=== PATIENT | male | born 1950 | race Caucasian/White ===

== ENCOUNTER 2020-11-30 20:37 | Inpatient (IN) | payer OTHER ==
--- OUTSIDE RECORDS SUMMARY | 2020-11-30 20:39 | XMS REPORT | Continuity of Care Document ---
:1950 Author Organization [facility] t Address [address] [place] [address] Care Team Providers Name Role Phone Noelle REYNA Primary Care Physician Noelle REYNA Attending Clinician Problems This patient has no known problems. Allergies, Adverse Reactions, Alerts This patient has no known allergies or adverse reactions. Social History Social Habit Start Date Stop Date Quantity Comments Source Sex Assigned At [birth year] [facility] 00:00:00 00:00:00 Smoking Status Start Date Stop Date Source Unknown if ever smoked [facility] Medications This patient has no known medications. Procedures Procedure Date / Time Performed Performing Clinician Sour e CT HEART SCAN PLUS W 2020-07-12 14:48:53 [facility] PHYSICIAN ORDER US VASCULAR SCREENING 2020-07-12 14:00:00 [facility] HEART SCAN PLUS Plan of Care Planned Activity Planned Date Details Comments Source Future Scheduled Test COVID-19 VACCINE (1) [facility] [code = COVID-19 VACCINE (1)] Future Scheduled Test Hepatitis C screening [facility] (procedure) [code = 961560766] Future Scheduled Test COLONOSCOPY SCREENING [facility] [code = COLONOSCOPY SCREENING] Future Scheduled Test SHINGLES VACCINES (#1) [facility] [code = SHINGLES VACCINES (#1)] Future Scheduled Test 65+ PNEUMOCOCCAL Me [facility] VACCINE (1 of 1 - PPSV23) [code = 65+ PNEUMOCOCCAL VACCINE (1 of 1 - PPSV23)] Future Scheduled Test INFLUENZA VACCINE [code [facility] = INFLUENZA VACCINE] Encounters Start End Encounter Admission Attending Care Care Encounter Source Date/Time Date/Time Type Type Clinicians Facility Department ID 2020-07-122020-07-12 [facility], 1.2.840.1 [id number] [facility] 08:00:14 23:59:00 Encounter [facility] [id number] 3.430.2.7 Hospit a .3.845284 l .8 2020-07-12 2020-07-12 Outpatient [facility] [id number] 00:00:00 00:00:[address] [facility] [address] 2020-07-12 2020-07-12 Outpatient [facility] [id number] 00:00:00 00:00:00 [facility] [address] 2020-07-12 2020-07-12 Travel 1.2.840.1 [id number] [facility] 00:00:00 00:00:[address] 3.430.2.7 0.2.7.3.698 Ho spita .3.691074 084.8 l .8 2020-06-08 2020-06-08 Travel 1.2.840.1 1.2.293.938 [id number] [facility] 00:00:00 00:00:[address] 3.430.2.7 0.2.7.3.698 Ho spita .3.099676 084.8 l .8 2020-03-01 2020-03-01 Transcribe [facility] 1.2.840.1 [id number] [facility] 00:00:00 00:00:00 Orders [facility] [address]82.1.[address] 3.430.2.7 Hospit a .3.171454 l .8 Results Test Description Test Time Test Comments Results Result [facility] e Comments Pv vascular 2020-06-24 Restorationist screening heart 0 Hospital scan plus (self 15:47:00 Vascular pay) Diagnostic Laboratory Screening Report [address] [address], [place] [address] Pat.Name: FÁTIMA HILLS Pat.ID: [id number] .Date: 07/12/2020 Refer.MD: GODWIN PADILLA MD Exam Time: 8:17:00 AM Study Type:Screening Age: 2 1950,70Y Sex: MALE Sonogrphr: JOLENE Sarabia Pat. Stat.:Outpatient Tape Vol: /SH, Echo Event ID:[id number] Order ID: [id number] Reason for Study:Vascular screeningProcedures: Ankle/brachial pressures, Colorflow, Grayscale/2D,Non-imagi ng continuous wave Doppler, Pulsed wave Doppler, SegmentalpressuresRace : SUMMARY: Vascular Screening ResultsScreening results are brief snapshots designed to detect functionalabnormal findings of carotid artery disease, abdominal aorticaneurysms (AAA), and peripheral arterial disease (PAD). Please Note: Screening results do not replace a complete vascularexamination.Ca rotid ArteryRight Internal Carotid Artery (X) Abnormal: Plaque present but no stenosis Left Internal Carotid Artery (X) Abnormal: Plaque present but no stenosis.Abdominal Aorta(X) Normal: No evidence of aneurysmal dilatation (less than 3cm).Ankle/Brachial Index(X) Abnormal: PAD present which falls into the mild category on theleft dorsalis pedis artery. Recommendations Your results are ABNORMAL. Please take these results to yourphysician and discuss them in further detail. If you do not have a physician you can call our [facility] to schedule an appointment at [phone].--------- -----FINDINGS:-------- ------Signed 07/12/2020 10:47 Truman Lazcano MD, RPVIInterce, Radiology Results In - 07/12/2020 10:48 AM CDT Vascular Diagnostic Laboratory Screening Report [address] [facility], [address] [address], [place] [address] Pat.Name: FÁTIMA HILLS.ID: [id number] .Date: 07/12/2020 Refer.MD: GODWIN PADILLA MD Exam Time: 8:17:00 AM Study Type:Screening Age: 2 1950,70Y Sex: MALE Sonogrphr: JOLENE Sarabia Pat. Stat.:Outpatient Tape Vol: VM/SH, Echo Event ID:[id number] Order ID: [id number] Reason for Study:Vascular screeningProcedures: Ankle/brachial pressures, Colorflow, Grayscale/2D,Non-imagi ng continuous wave Doppler, Pulsed wave Doppler, SegmentalpressuresRace : SUMMARY: Vascular Screening ResultsScreening results are brief snapshots designed to detect functionalabnormal findings of carotid artery disease, abdominal aorticaneurysms (AAA), and peripheral arterial disease (PAD). Please Note: Screening results do not replace a complete vascularexamination.Ca rotid ArteryRight Internal Carotid Artery (X) Abnormal: Plaque present but no stenosis Left Internal Carotid Artery (X) Abnormal: Plaque present but no stenosis.Abdominal Aorta(X) Normal: No evidence of aneurysmal dilatation (less than 3cm).Ankle/Brachial Index(X) Abnormal: PAD present which falls into the mild category on theleft dorsalis pedis artery. Recommendations Your results are ABNORMAL. Please take these results to yourphysician and discuss them in further detail. If you do not have a physician you can call our [facility] to schedule an appointment at [phone].--------- -----FINDINGS:-------- ------Signed 07/12/2020 10:47 Truman Lazcano MD, RPVI
--- NOTE | 2020-11-30 21:34 | RAD REPORT ---
EXAM DESCRIPTION: RAD - Chest Single View - 11/30/2020 9:09 pm CLINICAL HISTORY: DYSPNEA COMPARISON: CHEST PA AND LAT 2 VIEW dated 10/30/2007 FINDINGS: Lines: None. Lungs: Moderate patchy bilateral airspace disease. Pleural: No significant pleural effusions or pneumothorax. Cardiac: Cardiomegaly. Bones: No acute fractures. Other: IMPRESSION: Moderate bilateral airspace disease concerning for multifocal pneumonia, particularly Co vid-19.
[2020-11-30 22:27] LABS: Absolute Lymphocytes (CBC) 0.8 K/uL (0.7-4.9); Basophils % 0.1 % (0-1.3); Hematocrit 36.1 % (39.6-49.0); Lymphocytes % 6.3 % (15.3-44.8); MPV 7.6 fL (7.6-11.3); RBC Red Blood Cell Count 4.03 M/uL (4.33-5.43)
[2020-11-30] MEDS ORDERED: METHYLPREDNISOLONE 125 MG INJ ONE (22:49)
[2020-11-30] MEDS ORDERED: NA CHLORIDE 0.9% 1,000 ML ONE (22:49)
[2020-11-30 23:08] LABS: Albumin 2.3 g/dL (3.4-5.0); Bilirubin Direct 0.4 mg/dL (0-0.2); Bilirubin Total 0.7 mg/dL (0.2-1.0); Ferritin 573.3 ng/mL (26-388); Potassium 4.7 mmol/L (3.5-5.1); Protein, Total 6.3 g/dL (6.4-8.2); Troponin (Emerg Dept Use Only) 0.02 ng/mL (0.0-0.045)
[2020-11-30 23:30] LABS: Protime INR 1.22
[2020-12-01 00:05] LABS: Blood Morphology Comment NOT SEEN (NOT SEEN); Platelet Estimate ADEQ
--- NOTE | 2020-12-01 00:14 | EDPHYS ---
Physician Documentation [facility] Name: Demetris Salvador Age: 70 yrs Sex: Male : 1950 Arrival Date: 11/30/2020 Time: 20:41 Bed 15 Private MD: ED Physician Kin Khan HPI: 11/30 21:24 This 70 yrs old Male presents to ER via Wheelchair with complaints of rn Shortness of breath, low oxygen. 21:24 The patient has shortness of breath at rest, with light activity. Onset: The rn symptoms/episode began/occurred 10 day(s) ago. Duration: The symptoms are continuous. The patient's shortness of breath is aggravated by exertion, light activity, is alleviated by rest. Associated signs and symptoms: Pertinent positives: non-productive cough, dizziness, fever, Pertinent negatives: hemoptysis, loss of consciousness. Severity of symptoms: At their worst the symptoms were moderate in the emergency department the symptoms are unchanged. The patient has not experienced similar symptoms in the past. The patient has been recently seen by a physician:. Patient reports went to [place] today for Regeneron infusion, told oxygen too low, sent here, reports increased shortness of breath for the last few days, Covid +10 days ago. No chronic medical problems other than diabetes.. 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 - Social history:: Smoking status: unknown. - Family history:: not pertinent. - Hospitalizations: : No recent hospitalization is reported. 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 Exam: 21:24 Constitutional: This is a well developed, well nourished patient who is awake, alert, rn with moderate tachypnea Head/Face: Normocephalic, atraumatic. Eyes: Pupils equal round and reactive to light, extra-ocular motions intact. Lids and lashes normal. Conjunctiva and sclera are non-icteric and not injected. Cornea within normal limits. Periorbital areas with no swelling, redness, or edema. ENT: No stridor, dry mucous membranes Cardiovascular: Regular rate and rhythm. No pulse deficits. Respiratory: Moderate tachypnea, no retractions, diminished at bases Abdomen/GI: Soft, nontender Skin: Warm, dry MS/ Extremity: Pulses equal, no cyanosis. Neuro: Awake and alert, GCS 15 22:18 ECG was reviewed by the Attending Physician. rn Vital Signs: 20:43 BP 141 / 64; Pulse 108; Resp 28 S; Temp 98.9(O); Pulse Ox 95% on 4 lpm NC; Weight 77.11 bb kg (R); Height 5 ft. 9 in. (175.26 cm) (R); 22:00 BP 126 / 61; Pulse 85; Resp 23; Pulse Ox 96% on 3 lpm NC; bs2 23:00 BP 126 / 60; Pulse 80; Resp 21; Pulse Ox 96% on 3 lpm NC; bs2 12/01 00:00 BP 145 / 71; Pulse 90; Resp 20; Pulse Ox 96% on 3 lpm NC; bs2 01:00 BP 128 / 68; Pulse 83; Resp 20; Pulse Ox 96% on 3 lpm NC; bs2 02:00 BP 128 / 66; Pulse 82; Resp 20; Temp 100.8; Pulse Ox 94% on 3 lpm NC; Pain 0/10; bs2 11/30 20:43 Body Mass Index 25.10 (77.11 kg, 175.26 cm) bb MDM: 11/30 20:48 Patient medically screened. rn 12/01 00:11 Differential diagnosis: pneumonia, pulmonary edema, Pulmonary Embolism reactive airway rn disease, Sepsis Covid. Data reviewed: vital signs, nurses notes, lab test result(s), radiologic studies, and as a result, I will admit patient. Data interpreted: ui lead developer: rate is 108 beats/min, rhythm is regular, sinus tachycardia, with no ectopy, Interpretation: tachycardia, Pulse oximetry: on 4L(s) per nasal canula, is 95 %. Interpretation: acceptable. Test interpretation: by ED physician or midlevel provider: plain radiologic studies, Chest x-ray shows bilateral infiltrates consistent with Covid pneumonia. Counseling: I had a detailed discussion with the patient and/or guardian regarding: the historical points, exam findings, and any diagnostic results supporting the discharge/admit diagnosis, lab results, radiology results, the need for further work-up and treatment in the hospital. Response to treatment: the patient's symptoms have mildly improved after treatment, and as a result, I will admit patient. Admission orders: after a detailed discussion of the patient's condition and case, the admit orders are written by me. ED course: Consulted with Dr. Drake, will admit to his service for Covid pneumonia and hypoxia. CT chest negative for PE.. 11/30 20:58 Order name: BMP rn 11/30 20:58 Order name: Blood Culture Adult (2) rn 11/30 20:58 Order name: C-Reactive Protein rn 11/30 20:58 Order name: CBC with Diff rn 11/30 20:58 Order name: D-Dimer; Complete Time: 00:11 rn 11/30 20:58 Order name: Ferritin; Complete Time: 23:31 rn 11/30 20:58 Order name: LFT's; Complete Time: 23:31 rn 11/30 20:58 Order name: Lactate; Complete Time: 23:31 rn 11/30 20:58 Order name: PT-INR; Complete Time: 00:11 rn 11/30 20:58 Order name: Procalcitonin rn 11/30 20:58 Order name: Ptt, Activated; Complete Time: 00:11 rn 11/30 20:58 Order name: Troponin (emerg Dept Use Only); Complete Time: 23:31 rn 11/30 20:58 Order name: Basic Metabolic Panel; Complete Time: 23:31 EDNM 11/30 20:58 Order name: CXR XRAY; Complete Time: 22:23 rn 11/30 20:58 Order name: EKG; Complete Time: 20:59 rn 11/30 20:58 Order name: Cardiac monitoring; Complete Time: 21:36 rn 11/30 20:58 Order name: Droplet/Contact Precautions; Complete Time: 21:36 rn 11/30 20:58 Order name: EKG - Nurse/Tech; Complete Time: 21:36 rn 11/30 20:58 Order name: IV Start; Complete Time: 21:36 rn 11/30 20:58 Order name: Labs collected and sent; Complete Time: 21:36 rn 11/30 20:58 Order name: O2 Per Protocol; Complete Time: 21:36 rn 11/30 20:58 Order name: CT Chest For PE Angio rn 11/30 20:58 Order name: Blood Culture EDNM 11/30 20:58 Order name: C-Reactive Protein; Complete Time: 23:31 EDNM 11/30 20:58 Order name: CBC with Automated Diff; Complete Time: 00:11 EDNM 11/30 22:37 Order name: Manual Differential; Complete Time: 00:11 EDNM 11/30 22:43 Order name: SARS-COV-2 RT PCR; Complete Time: 23:31 EDNM 11/30 20:58 Order name: O2 Sat Monitoring; Complete Time: 21:36 rn 11/30 21:45 Order name: Labs - recollect needed: all labs needed; Complete Time: 23:47 mw2 EC/08 22:18 Rate is 81 beats/min. Rhythm is regular. QRS [place] is Normal. SD interval is normal. QRS rn interval is normal. QT interval is normal. No Q waves. No ST changes noted. Clinical impression: Normal ECG. Interpreted by me. Reviewed by me. Administered Medications: 22:36 Drug: NS 0.9% 1000 ml Route: IV; Rate: 1000 ml; Site: left antecubital; 2 12/01 02:24 Follow up: IV Status: Completed infusion; IV Intake: 1000ml [facility] 11/30 22:36 Drug: SOLU-Medrol (methylPrednisoLONE) 125 mg Route: IVP; Site: left antecubital; 2 12/01 02:24 Follow up: Response: No adverse reaction bs2 Disposition Summary: 12/01/20 00:13 Hospitalization Ordered Hospitalization Status: Inpatient Admission rn Provider: Cullen Drake rn Condition: Fair rn Problem: new rn Symptoms: are unchanged rn Bed/Room Type: Standard rn Location: Telemetry/MedSurg (Inpatient)(12/01/20 01:13) tl1 Room Assignment: 404(12/01/20 01:34) tl1 Diagnosis - Pneumonia due to SARS-associated coronavirus rn - Hypoxemia rn - Dehydration rn Forms: - Medication Reconciliation Form rn - SBAR form rn Signatures: Dispatcher [employer] EDNM Cheryl Crowell, RN RN Kin Christie MD MD rn Lasagna, Tonya, RN RN tl1 Laurent Winters 2 Laly Lundy RN RN bs2 Corrections: (The following items were deleted from the chart) 11/30 21:21 20:59 CORONAVIRUS+MR.LAB.BRZ ordered. [facility] 12/01 01:13 00:13 Telemetry/MedSurg (Inpatient) rn tl1 01:13 00:13 rn tl1 01:34 01:13 tl1 tl1
--- NOTE | 2020-12-01 00:14 | ER ---
Nurse's Notes [facility] Name: Demetris Salvador Age: 70 yrs Sex: Male : 1950 Arrival Date: 11/30/2020 Time: 20:41 Bed 15 Private MD: Diagnosis: Pneumonia due to SARS-associated coronavirus;Hypoxemia;Dehydration Presentation: 11/30 20:42 Chief complaint: Patient states: he was at [place] for Regeneron infusion but his sats bb were too low so they sent him here. Pt's sats on room are 67%. 20:43 Coronavirus screen: chills, difficulty breathing, fever, Client presents with at least bb one sign or symptom that may indicate coronavirus-19. Standard/surgical mask placed on the client. Client reports previous positive COVID test result. Ebola Screen: No symptoms or risks identified at this time. Initial Sepsis Screen: Does the patient meet any 2 criteria? RR > 20 per min. HR > 90 bpm. Yes Does the patient have a suspected source of infection? Yes: Other: Covid. Risk Assessment: Do you want to hurt yourself or someone else? Patient reports no desire to harm self or others. Onset of symptoms was November 30, 2020. 20:43 Method Of Arrival: Wheelchair bb 20:43 Acuity: LIAT 2 bb Historical: - Allergies: 20:45 No Known Allergies; bb - PMHx: 20:45 IDDM; bb - Immunization history:: Adult Immunizations up to date, Client reports receiving the 2nd dose of the Covid vaccine. - Social history:: Smoking status: unknown. - Family history:: not pertinent. - Hospitalizations: : No recent hospitalization is reported. Screenin:00 Abuse screen: Denies threats or abuse. Denies injuries from another. Nutritional bs2 screening: Has had N/V for 3 or more days decreased appetite . Tuberculosis screening: No symptoms or risk factors identified. Fall Risk Secondary diagnosis (15 points) Covid. Assessment: 21:00 General: Appears in no apparent distress. uncomfortable, slender, well groomed, well bs2 developed, well nourished, Behavior is calm, cooperative, appropriate for age. Pain: Denies pain. Neuro: No deficits noted. Cardiovascular: No deficits noted. Respiratory: Reports shortness of breath at rest cough that is productive, labored breathing pain with cough Airway is patent Trachea midline Respiratory effort is even, labored. GI: Abd is soft and non tender X 4 quads. Reports. : No signs and/or symptoms were reported regarding the genitourinary system. EENT: No signs and/or symptoms were reported regarding the EENT system. Vital Signs: 20:43 BP 141 / 64; Pulse 108; Resp 28 S; Temp 98.9(O); Pulse Ox 95% on 4 lpm NC; Weight 77.11 bb kg (R); Height 5 ft. 9 in. (175.26 cm) (R); 22:00 BP 126 / 61; Pulse 85; Resp 23; Pulse Ox 96% on 3 lpm NC; bs2 23:00 BP 126 / 60; Pulse 80; Resp 21; Pulse Ox 96% on 3 lpm NC; bs2 12/01 00:00 BP 145 / 71; Pulse 90; Resp 20; Pulse Ox 96% on 3 lpm NC; bs2 01:00 BP 128 / 68; Pulse 83; Resp 20; Pulse Ox 96% on 3 lpm NC; bs2 02:00 BP 128 / 66; Pulse 82; Resp 20; Temp 100.8; Pulse Ox 94% on 3 lpm NC; Pain 0/10; bs2 11/30 20:43 Body Mass Index 25.10 (77.11 kg, 175.26 cm) bb ED Course: 11/30 20:41 Patient arrived in ED. mw2 20:45 Triage completed. bb 20:45 Arm band placed on Patient placed in an exam room, on a stretcher, on oxygen, on bb cardiac specialist, on pulse oximetry. Family accompanied patient. 20:48 Kin Khan MD is Attending Physician. rn 21:00 Patient has correct armband on for positive identification. 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 Pulse bs2 ox on. NIBP on. Door closed. Lights dimmed. Warm blanket given. Pillow given. 21:00 Inserted saline lock: 20 gauge in left antecubital area, using aseptic technique. kg 21:09 CXR XRAY In Process Unspecified. EDMS 21:36 C-Reactive Protein Sent. kg 21:36 Basic Metabolic Panel Sent. kg 21:36 CBC with Automated Diff Sent. kg 21:36 Blood Culture Sent. kg 21:36 D-Dimer Sent. kg 21:36 Ferritin Sent. kg 21:36 LFT's Sent. kg 21:36 Lactate Sent. kg 21:36 PT-INR Sent. kg 21:36 Procalcitonin Sent. kg 21:36 Ptt, Activated Sent. kg 21:36 Troponin (emerg Dept Use Only) Sent. kg 22:14 Laly Lundy, RN is Primary Nurse. bs2 23:35 CT Chest For PE Angio In Process Unspecified. EDMS 23:47 Manual Differential Sent. bs2 23:47 BMP Sent. bs2 23:47 Blood Culture Adult (2) Sent. bs2 23:47 C-Reactive Protein Sent. bs2 23:48 CBC with Diff Sent. bs2 23:48 Procalcitonin Sent. bs2 12/01 00:13 Cullen Drake MD is Hospitalizing Provider. rn 02:32 No provider procedures requiring assistance completed. Patient admitted, IV remains in bs2 place. Administered Medications: 11/30 22:36 Drug: NS 0.9% 1000 ml Route: IV; Rate: 1000 ml; Site: left antecubital; bs2 12/01 02:24 Follow up: IV Status: Completed infusion; IV Intake: 1000ml bs2 11/30 22:36 Drug: SOLU-Medrol (methylPrednisoLONE) 125 mg Route: IVP; Site: left antecubital; bs2 12/01 02:24 Follow up: Response: No adverse reaction bs2 Intake: 02:24 IV: 1000ml; Total: 1000ml. bs2 Outcome: 00:13 Decision to Hospitalize by Provider. rn 02:41 Admitted to Med/surg accompanied by nurse, via wheelchair, room 404, with oxygen, with bs2 chart, Report called to Yesi TANG 02:41 Condition: improved 02:41 Instructed on the need for admit. 03:47 Patient left the ED. bs2 Signatures: Dispatcher [employer] EDMS Cheryl Crowell RN Kin Osborne MD MD rn [place], MyKena mw2 Shawna Dumont RN RN kg Laly Lundy, RN RN bs2
[2020-12-01] MEDS ORDERED: ALBUTEROL 2.5 MG/3 ML NEB SOL NEB PRN (03:50)
[2020-12-01] MEDS ORDERED: ONDANSETRON 4 MG/2 ML VIAL IV PRN (03:50)
[2020-12-01 04:30] VITALS: BMI 25.1
[2020-12-01] MEDS: METHYLPREDNISOLONE 40 MG INJ IV SCH ×3 (06:00→17:07)
[2020-12-01] MEDS: ASPIRIN 325 MG TAB PO SCH (09:00)
[2020-12-01] MEDS: INSULIN -REGULAR HUMAN 50 UNIT/0.5 ML ML SQ SCH ×4 (09:49→21:05)
--- NOTE | 2020-12-01 11:13 | RAD REPORT ---
EXAM DESCRIPTION: CT - Chest For Pe Angio - 12/01/2020 6:24 am CLINICAL HISTORY: DYSPNEA COMPARISON: None Available TECHNIQUE: Multiple helical axial tomographic images were obtained of the chest following administra tion of intravenous contrast per angiographic protocol. Coronal and sagittal reformatted images were obtained. This exam was performed according to our departmental dose-optimization program, which includes autom ated exposure control, adjustment of the mA and/or kV according to patient size and/or use of iterati ve reconstruction technique. FINDINGS: Thyroid gland: unremarkable. Axilla: unremarkable. Pulmonary arteries: Evaluation of several distal segmental and subsegmental arteries bilaterally is l imited due to motion artifact. No evidence of pulmonary embolism within the main, right/left, lobar, or proximal segmental pulmonary arteries. Aorta: No evidence of aortic dissection or aneurysm. Mediastinum: Unremarkable. No adenopathy. Heart: Heart is normal in size. Lungs/airways: Scattered areas of groundglass opacity in both lungs are demonstrated. Airways are pat ent. Pleural spaces: Small bilateral pleural effusions are present. No pneumothorax. Osseous: Small thoracic bridging osteophytes are present. Soft tissues: Unremarkable. Visualized abdomen: Unremarkable. IMPRESSION: 1. Evaluation of several peripheral pulmonary arteries is limited due to motion artifact . No evidence of pulmonary embolism within the main, right/left, lobar, or proximal segmental pulmona ry arteries. 2. Groundglass opacities in both lungs suggestive an infectious or inflammatory process. 3. Small bilateral pleural effusions. Electronically signed by: Roland Mckenzie MD 11/30/2020 11:59 PM CDT Due to temporary technical issues with the PACS/Fluency reporting system, reports are being signed by the in house radiologist without review as a courtesy to ensure prompt reporting. The interpreting r adiologist is fully responsible for the content of the report.
[2020-12-01] MEDS: BARICITINIB 2 MG TABLET PO SCH (12:13)
[2020-12-01] MEDS: ENOXAPARIN 40 MG/0.4 ML SQ SCH (17:00)
--- NOTE | 2020-12-01 21:11 | P.HP ---
Certification for Inpatient Patient admitted to: Inpatient With expected LOS: >2 Midnights Practitioner: I am a practitioner with admitting privileges, knowledge of patient current condition, hospital course, and medical plan of care. Services: Services provided to patient in accordance with Admission requirements found in Title 42 Section 412.3 of the Code of Federal Regulations Patient History Date of Service: 12/01/20 Reason for admission: SHORT OF BREATH, COVID POSITIVE History of Present Illness: SANNA IS A DIABETIC WHO HAS BEEN POSITIVE FOR COVID 19 VIRUS INFECTION BY HOME TEST. HE COULD NOT DO INFUSION FOR MAB HE HAD TO WAIT FOR PCR TEST. BEFORE HE COULD DO THAT HE GOT WORSE AND REPORTED TO ER. THIS IS DAY 9 OF HIS INFECTION. HE IS STABLE , WEAK AND DYSPNEIC. Allergies No Known Allergies Allergy (Unverified 12/01/20 03:50) Home medications list reviewed: Yes - Past Medical/Surgical History Has patient received pneumonia vaccine in the past: Yes -: DM, HTN. - Social History Smoking Status: Never smoker Alcohol use: No CD- Drugs: No Caffeine use: No Review of Systems 10-point ROS is otherwise unremarkable General: Weakness, Malaise Respiratory: Shortness of Breath Physical Examination - Vital Signs Temperature: 97.9 F Blood Pressure: 121/58 Pulse: 76 Respirations: 20 Pulse Ox (%): 93 - Physical Exam General: Oriented x3, Moderate distress HEENT: Atraumatic, PERRLA, Mucous membr. moist/pink, EOMI, Sclerae nonicteric Neck: Supple, 2+ carotid pulse no bruit, No LAD, Without JVD or thyroid abnormality Respiratory: Other (MILD TO MODERATE VISIBLE DISTRESS.) Cardiovascular: Regular rate/rhythm, Normal S1 S2 Gastrointestinal: Normal bowel sounds, No tenderness Musculoskeletal: No tenderness Integumentary: No rashes Neurological: Normal gait, Normal speech, Normal strength at 5/5 x4 extr, Normal tone, Normal affect Lymphatics: No axilla or inguinal lymphadenopathy - Studies Laboratory Data (last 24 hrs) 11/30/20 22:06: PT 14.1 H, INR 1.22, APTT 28.3 11/30/20 22:06: WBC 11.90 H, Hgb 12.4 L, Hct 36.1 L, Plt Count 262 11/30/20 22:06: Sodium 133 L, Potassium 4.7, BUN 23 H, Creatinine 1.23, Glucose 189 H, Total Bilirubin 0.7, AST 46 H, ALT 37, Alkaline Phosphatase 76 Assessment and Plan - Problems (Diagnosis) (1) Pneumonia due to COVID-19 virus Current Visit: Yes Status: Acute Plan: IV SOLUMEDROL WATCH GLUCOSE. BARICITINIB DAILY PROGNOSIS GUARDED. CRP DAILY. (2) Diabetes Current Visit: Yes Status: Chronic Plan: SLIDING SCALE LANTUS DAILY SC WILL RAISE DOSE NEED. Qualifiers: Diabetes mellitus type: type 2 - Advance Directives Does patient have a Living Will: Yes Does patient have a Durable POA for Healthcare: No
[2020-12-01] MEDS ORDERED: D50W 25 GM/50 ML SYRINGE IV PRN (21:12)
[2020-12-01] MEDS ORDERED: GLUCAGON 1 MG/VIAL IM PRN (21:12)
[2020-12-02] MEDS: METHYLPREDNISOLONE 40 MG INJ IV SCH ×4 (00:21→17:13)
[2020-12-02 06:35] LABS: Absolute Lymphocytes (CBC) 0.4 K/uL (0.7-4.9); Basophils % 0.2 % (0-1.3); Hematocrit 36.1 % (39.6-49.0); Lymphocytes % 3.6 % (15.3-44.8); RBC Red Blood Cell Count 3.99 M/uL (4.33-5.43)
[2020-12-02 06:54] LABS: C-Reactive Protein 83.4 mg/L (<3.00); Potassium 5.4 mmol/L (3.5-5.1)
[2020-12-02] MEDS: ASPIRIN 325 MG TAB PO SCH (08:20)
[2020-12-02] MEDS: BARICITINIB 2 MG TABLET PO SCH (08:21)
[2020-12-02] MEDS: INSULIN -REGULAR HUMAN 50 UNIT/0.5 ML ML SQ SCH ×4 (08:21→20:47)
[2020-12-02] MEDS ORDERED: FUROSEMIDE 20 MG/ 2ML VIAL IV ONE (12:23)
--- NOTE | 2020-12-02 12:24 | P.CNS ---
Date of Consult: 12/02/20 Reason for Consult: Coronavirus pneumonia Chief Complaint: SHORT OF BREATH, COVID POSITIVE History of Present Illness: Patient is 70 years of age got sick about a week ago developed progressive shortness of breath ended up here in the hospital with coronavirus pneumonia feeling somewhat better on admission Allergies No Known Allergies Allergy (Verified 12/02/20 03:08) - Past Medical/Surgical History -: DM, HTN. - Social History Smoking Status: Unknown if ever smoked Alcohol use: No CD- Drugs: No Caffeine use: No Review of Systems General: Weakness Respiratory: Shortness of Breath Physical Examination Temp Pulse Resp BP Pulse Ox 97.7 F 89 22 H 130/63 96 12/02/20 08:00 12/02/20 08:00 12/02/20 08:00 12/02/20 08:00 12/02/20 08:00 General: Alert, Oriented x3, Cooperative, Mild distress - Problems (1) Pneumonia due to COVID-19 virus Current Visit: Yes Status: Acute Plan: Patient is 70 years of age admitted with coronavirus pneumonia currently on 10 L of nasal cannula oxygen with sat of 95% plan to titrate to a sat of 90% patient is on Barcitinib and steroids potassium is mildly elevated 1 dose of Lasix
[2020-12-02] MEDS: DULOXETINE 30 MG CAP PO SCH (14:20)
--- NOTE | 2020-12-02 14:38 | P.PN ---
Subjective Date of Service: 12/02/20 Chief Complaint: SHORT OF BREATH, COVID POSITIVE Subjective: Improving HE IS FEELING BETTER. DENIES ANY NEW COMPLAINTS. Review of Systems 10-point ROS is otherwise unremarkable General: Weakness, Malaise Respiratory: Shortness of Breath Physical Examination - Vital Signs Temperature: 97 F Blood Pressure: 123/60 Pulse: 73 Respirations: 24 Pulse Ox (%): 98 - Physical Exam General: Oriented x3, Mild distress Neck: Without JVD or thyroid abnormality Cardiovascular: No edema, Regular rate/rhythm Assessment And Plan - Current Problems (Diagnosis) (1) Pneumonia due to COVID-19 virus Current Visit: Yes Status: Acute Plan: IV SOLUMEDROL WATCH GLUCOSE. BARICITINIB DAILY PROGNOSIS GUARDED. CRP DAILY. PULSE OX IS 98% ON 10 LT WILL BE ABLE TO REDUCE IT. CONT MEDS. (2) Diabetes Current Visit: Yes Status: Chronic Plan: SLIDING SCALE LANTUS DAILY SC WILL RAISE DOSE NEED. RAISE LANTUS DOSE. Qualifiers: Diabetes mellitus type: type 2 (3) Chronic depression Current Visit: Yes Status: Chronic Plan: RESUME DULOXETINE DAILY.
[2020-12-02] MEDS: ENOXAPARIN 40 MG/0.4 ML SQ SCH (17:13)
[2020-12-02] MEDS: INSULIN GLARGINE 100 UNITS/ML SQ SCH (20:45)
[2020-12-02] MEDS: ATORVASTATIN 20 MG TAB PO SCH (20:48)
[2020-12-02] MEDS ORDERED: INSULIN GLARGINE 100 UNITS/ML SQ SCH ×2 (21:00)
[2020-12-03] MEDS: METHYLPREDNISOLONE 40 MG INJ IV SCH ×3 (01:00→16:56)
[2020-12-03 05:44] LABS: Absolute Lymphocytes (CBC) 0.4 K/uL (0.7-4.9); Basophils % 0.1 % (0-1.3); Hematocrit 36.6 % (39.6-49.0); Lymphocytes % 6.3 % (15.3-44.8); MPV 8.2 fL (7.6-11.3); RBC Red Blood Cell Count 4.06 M/uL (4.33-5.43)
[2020-12-03 06:04] LABS: BUN Blood Urea Nitrogen 33 mg/dL (7-18); Bicarbonate 31 mmol/L (21-32); Glucose Level 169 mg/dL (74-106); Potassium 4.8 mmol/L (3.5-5.1); Sodium Level 138 mmol/L (136-145)
[2020-12-03] MEDS: BARICITINIB 2 MG TABLET PO SCH (08:36)
[2020-12-03] MEDS: DULOXETINE 30 MG CAP PO SCH (08:36)
[2020-12-03] MEDS: ASPIRIN 325 MG TAB PO SCH (08:36)
[2020-12-03] MEDS: INSULIN -REGULAR HUMAN 50 UNIT/0.5 ML ML SQ SCH ×4 (08:37→21:14)
[2020-12-03] MEDS: ENOXAPARIN 40 MG/0.4 ML SQ SCH (16:56)
--- NOTE | 2020-12-03 17:09 | P.PN ---
Subjective Date of Service: 12/03/20 Chief Complaint: SHORT OF BREATH, COVID POSITIVE Subjective: Improving HE IS FEELING BETTER. DENIES ANY NEW COMPLAINTS. HIS OXYGEN NEED HAS GONE DOWN SLOWLY. Review of Systems 10-point ROS is otherwise unremarkable General: Weakness, Malaise Respiratory: Shortness of Breath Physical Examination - Vital Signs Temperature: 96.4 F Blood Pressure: 189/82 Pulse: 84 Respirations: 18 Pulse Ox (%): 95 - Physical Exam General: Oriented x3, Mild distress HEENT: Atraumatic, PERRLA, EOMI Neck: Supple, JVD not distended Cardiovascular: Regular rate/rhythm (ON MONITOR) Gastrointestinal: Normal bowel sounds, No tenderness Musculoskeletal: No tenderness Integumentary: No rashes Neurological: Normal speech, Normal tone, Normal affect Lymphatics: No axilla or inguinal lymphadenopathy - Studies Medications List Reviewed: Yes Assessment And Plan - Current Problems (Diagnosis) (1) Pneumonia due to COVID-19 virus Current Visit: Yes Status: Acute Plan: IV SOLUMEDROL WATCH GLUCOSE. BARICITINIB DAILY PROGNOSIS GUARDED. CRP DAILY. PULSE OX IS 98% ON 10 LT WILL BE ABLE TO REDUCE IT. CONT MEDS. CONT MEDS. IMPROVED DOWN TO 4 LT NC. (2) Diabetes Current Visit: Yes Status: Chronic Plan: SLIDING SCALE LANTUS DAILY SC WILL RAISE DOSE NEED. RAISE LANTUS DOSE. GLUCOSE HAS FLUCTUATED FROM STEROIDS. Qualifiers: Diabetes mellitus type: type 2 (3) Chronic depression Current Visit: Yes Status: Chronic Plan: RESUME DULOXETINE DAILY. (4) HTN (hypertension) Current Visit: Yes Status: Acute Plan: ADD LOSARTAN Qualifiers: Hypertension type: primary hypertension Qualified Code(s): I10 - Essential (primary) hypertension
[2020-12-03] MEDS ORDERED: INSULIN -REGULAR HUMAN 50 UNIT/0.5 ML ML SQ ONE (18:45)
[2020-12-03] MEDS: ATORVASTATIN 20 MG TAB PO SCH (21:13)
[2020-12-03] MEDS: INSULIN GLARGINE 100 UNITS/ML SQ SCH (21:13)
[2020-12-04] MEDS: METHYLPREDNISOLONE 40 MG INJ IV SCH ×3 (00:52→17:18)
[2020-12-04 04:14] LABS: Absolute Lymphocytes (CBC) 0.5 K/uL (0.7-4.9); Basophils % 0.2 % (0-1.3); Hematocrit 37.2 % (39.6-49.0); Lymphocytes % 7.2 % (15.3-44.8); RBC Red Blood Cell Count 4.13 M/uL (4.33-5.43)
[2020-12-04 04:20] LABS: BUN Blood Urea Nitrogen 31 mg/dL (7-18); Bicarbonate 31 mmol/L (21-32); Glucose Level 148 mg/dL (74-106); Potassium 5.2 mmol/L (3.5-5.1); Sodium Level 139 mmol/L (136-145)
[2020-12-04] MEDS: INSULIN -REGULAR HUMAN 50 UNIT/0.5 ML ML SQ SCH ×4 (07:30→21:41)
[2020-12-04] MEDS: LOSARTAN POTASSIUM 50 MG TABLET PO SCH (08:59)
[2020-12-04] MEDS: ASPIRIN 325 MG TAB PO SCH (08:59)
[2020-12-04] MEDS: BARICITINIB 2 MG TABLET PO SCH (09:00)
[2020-12-04] MEDS: DULOXETINE 30 MG CAP PO SCH (09:00)
[2020-12-04] MEDS: ENOXAPARIN 40 MG/0.4 ML SQ SCH (17:19)
[2020-12-04] MEDS: METOPROLOL XL 25 MG TAB PO SCH (18:02)
[2020-12-04] MEDS: ATORVASTATIN 20 MG TAB PO SCH (21:40)
[2020-12-04] MEDS: INSULIN GLARGINE 100 UNITS/ML SQ SCH (21:42)
[2020-12-05] MEDS: METHYLPREDNISOLONE 40 MG INJ IV SCH ×3 (03:15→16:24)
[2020-12-05 04:08] LABS: Absolute Lymphocytes (CBC) 0.7 K/uL (0.7-4.9); Basophils % 0.2 % (0-1.3); Hematocrit 37.9 % (39.6-49.0); Lymphocytes % 8.4 % (15.3-44.8); MPV 7.7 fL (7.6-11.3); RBC Red Blood Cell Count 4.22 M/uL (4.33-5.43)
[2020-12-05 04:29] LABS: BUN Blood Urea Nitrogen 28 mg/dL (7-18); Bicarbonate 31 mmol/L (21-32); Glucose Level 53 mg/dL (74-106); Potassium 4.6 mmol/L (3.5-5.1); Sodium Level 139 mmol/L (136-145)
[2020-12-05] MEDS: METOPROLOL XL 25 MG TAB PO SCH (06:40)
--- NOTE | 2020-12-05 07:04 | RAD REPORT ---
EXAM DESCRIPTION: RAD - Chest Single View - 12/05/2020 6:43 am CLINICAL HISTORY: COVID FU, HYPOXIA COMPARISON: Chest Single View dated 11/30/2020; CHEST PA AND LAT 2 VIEW dated 10/30/2007; Chest For Pe A ngio dated 11/30/2020 FINDINGS: Lines: None. Lungs: Worsened aeration of the right lung with moderate bilateral airspace disease again noted. Pleural: No significant pleural effusions or pneumothorax. Cardiac: The heart size is within normal limits. Bones: No acute fractures. Other: IMPRESSION: Worsened aeration of the lungs consistent with multifocal pneumonia.
[2020-12-05] MEDS: INSULIN -REGULAR HUMAN 50 UNIT/0.5 ML ML SQ SCH ×4 (07:30→22:03)
[2020-12-05] MEDS: LOSARTAN POTASSIUM 50 MG TABLET PO SCH (08:18)
[2020-12-05] MEDS: DULOXETINE 30 MG CAP PO SCH (08:19)
[2020-12-05] MEDS: VITAMIN D 5,000 UNIT CAP PO SCH (08:19)
[2020-12-05] MEDS: BARICITINIB 2 MG TABLET PO SCH (08:19)
[2020-12-05] MEDS: ASPIRIN 325 MG TAB PO SCH (08:20)
[2020-12-05] MEDS: ARIPiprazole 5 MG TAB PO SCH (11:04)
--- NOTE | 2020-12-05 15:51 | P.PN ---
Subjective Date of Service: 12/05/20 Chief Complaint: COVID penumonia Subjective: Improving (Feeling better O2 increased lat night NC) Review of Systems Unremarkable Physical Examination - Vital Signs Temperature: 96.3 F Blood Pressure: 135/63 Pulse: 62 Respirations: 16 Pulse Ox (%): 99 - Physical Exam General: Alert, In no apparent distress, Oriented x3, Cooperative - Studies Medications List Reviewed: Yes Assessment & Plan - Problems (Diagnosis) (1) Pneumonia due to COVID-19 virus Current Visit: Yes Status: Acute Plan: COvid penumonia/ Continue to wean down on O2/ poss dc am/cxry NC
[2020-12-05] MEDS: ENOXAPARIN 40 MG/0.4 ML SQ SCH (16:24)
[2020-12-05] MEDS ORDERED: METOPROLOL XL 25 MG TAB PO SCH (17:31)
--- NOTE | 2020-12-05 17:57 | P.PN ---
Subjective Date of Service: 12/05/20 Chief Complaint: COVID penumonia Subjective: Improving HE IS FEELING BETTER. DENIES ANY NEW COMPLAINTS. HIS OXYGEN NEED HAS GONE DOWN SLOWLY. HIS O2 SAT GOT WORSE LAST NIGHT. HE LOOKS AND FEELS GOOD OTHERWISE. Physical Examination - Vital Signs Temperature: 96.3 F Blood Pressure: 135/63 Pulse: 62 Respirations: 16 Pulse Ox (%): 99 - Physical Exam General: Oriented x3, Mild distress HEENT: Atraumatic, PERRLA, EOMI Neck: Supple, JVD not distended Cardiovascular: Regular rate/rhythm, Normal S1 S2 Gastrointestinal: Normal bowel sounds, No tenderness Musculoskeletal: No tenderness Integumentary: No rashes Neurological: Normal speech, Normal tone, Normal affect Lymphatics: No axilla or inguinal lymphadenopathy - Studies Medications List Reviewed: Yes Assessment And Plan - Current Problems (Diagnosis) (1) Pneumonia due to COVID-19 virus Current Visit: Yes Status: Acute Plan: IV SOLUMEDROL WATCH GLUCOSE. BARICITINIB DAILY PROGNOSIS GUARDED. CRP DAILY. PULSE OX IS 98% ON 10 LT WILL BE ABLE TO REDUCE IT. CONT MEDS. CONT MEDS. IMPROVED DOWN TO 4 LT NC. CXR IS WORSE. MAY LAG IMPROVEMENT. CONTINUE CURRENT RX. HE IS GETTING ALL HE NEEDS. (2) Diabetes Current Visit: Yes Status: Chronic Plan: SLIDING SCALE LANTUS DAILY SC WILL RAISE DOSE NEED. RAISE LANTUS DOSE. GLUCOSE HAS FLUCTUATED FROM STEROIDS. Qualifiers: Diabetes mellitus type: type 2 (3) Chronic depression Current Visit: Yes Status: Chronic Plan: RESUME DULOXETINE DAILY. (4) HTN (hypertension) Current Visit: Yes Status: Acute Plan: ADD LOSARTAN Qualifiers: Hypertension type: primary hypertension Qualified Code(s): I10 - Essential (primary) hypertension
[2020-12-05] MEDS ORDERED: INSULIN GLARGINE 100 UNITS/ML SQ SCH (21:00)
[2020-12-05] MEDS: ATORVASTATIN 20 MG TAB PO SCH (22:04)
[2020-12-06] MEDS: METHYLPREDNISOLONE 40 MG INJ IV SCH ×3 (01:07→17:13)
[2020-12-06 04:33] LABS: Absolute Lymphocytes (CBC) 0.4 K/uL (0.7-4.9); Basophils % 0.2 % (0-1.3); Hematocrit 38.4 % (39.6-49.0); Lymphocytes % 3.6 % (15.3-44.8); MPV 7.8 fL (7.6-11.3)
[2020-12-06 04:48] LABS: BUN Blood Urea Nitrogen 24 mg/dL (7-18); Bicarbonate 34 mmol/L (21-32); C-Reactive Protein 5.46 mg/L (<3.00); Glucose Level 117 mg/dL (74-106); Potassium 5.5 mmol/L (3.5-5.1); Sodium Level 138 mmol/L (136-145)
[2020-12-06 05:32] LABS: Blood Morphology Comment NOT SEEN (NOT SEEN); Platelet Estimate INCR
[2020-12-06] MEDS: METOPROLOL XL 25 MG TAB PO SCH (05:58)
[2020-12-06] MEDS: INSULIN -REGULAR HUMAN 50 UNIT/0.5 ML ML SQ SCH ×3 (07:30→17:13)
[2020-12-06] MEDS: ASPIRIN 325 MG TAB PO SCH (09:23)
[2020-12-06] MEDS: AMLODIPINE 5 MG TAB PO SCH (09:23)
[2020-12-06] MEDS: DULOXETINE 30 MG CAP PO SCH (09:23)
[2020-12-06] MEDS: ARIPiprazole 5 MG TAB PO SCH (09:23)
[2020-12-06] MEDS: VITAMIN D 5,000 UNIT CAP PO SCH (09:23)
[2020-12-06] MEDS: BARICITINIB 2 MG TABLET PO SCH (09:25)
[2020-12-06] MEDS: NACHLORIDE 0.45% 1,000 ML IV SCH (09:26)
[2020-12-06] MEDS: ENOXAPARIN 40 MG/0.4 ML SQ SCH (17:14)
--- NOTE | 2020-12-06 18:22 | P.PN ---
Subjective Date of Service: 12/06/20 Chief Complaint: COVID penumonia Subjective: Improving HE IS FEELING BETTER. DENIES ANY NEW COMPLAINTS. HIS OXYGEN NEED HAS GONE DOWN SLOWLY. HIS O2 SAT GOT WORSE LAST NIGHT. HE LOOKS AND FEELS GOOD OTHERWISE. LOOKS BETTER. NOT WALKING MUCH HE LAYS ALL DAY. HE HAS SAD AFFECT AND I HAVE ADDED ABILIFY TO HELP Physical Examination - Vital Signs Temperature: 97.1 F Blood Pressure: 138/67 Pulse: 68 Respirations: 16 Pulse Ox (%): 100 - Physical Exam General: Oriented x3, Mild distress, Moderate distress HEENT: Atraumatic, PERRLA, EOMI Neck: Supple, JVD not distended Respiratory: Clear to auscultation bilaterally, Normal air movement Cardiovascular: Regular rate/rhythm, Normal S1 S2 Gastrointestinal: Normal bowel sounds, No tenderness Musculoskeletal: No tenderness Integumentary: No rashes Neurological: Normal speech, Normal tone, Normal affect Lymphatics: No axilla or inguinal lymphadenopathy - Studies Microbiology Data (last 24 hrs): 11/30/20 21:13 Blood - Blood Aerobic Blood Culture - Final No growth in 5 days. 11/30/20 21:13 Blood - Blood Anaerobic Blood Culture - Final No growth in 5 days. 11/30/20 21:02 Blood - Blood Aerobic Blood Culture - Final No growth in 5 days. 11/30/20 21:02 Blood - Blood Anaerobic Blood Culture - Final No growth in 5 days. Medications List Reviewed: Yes Assessment And Plan - Current Problems (Diagnosis) (1) Pneumonia due to COVID-19 virus Current Visit: Yes Status: Acute Plan: IV SOLUMEDROL WATCH GLUCOSE. BARICITINIB DAILY PROGNOSIS GUARDED. CRP DAILY. PULSE OX IS 98% ON 10 LT WILL BE ABLE TO REDUCE IT. CONT MEDS. CONT MEDS. IMPROVED DOWN TO 4 LT NC. CXR IS WORSE. MAY LAG IMPROVEMENT. CONTINUE CURRENT RX. HE IS GETTING ALL HE NEEDS. CONT MEDS. GRADUAL IMPROVEMENT. (2) Diabetes Current Visit: Yes Status: Chronic Plan: SLIDING SCALE LANTUS DAILY SC WILL RAISE DOSE NEED. RAISE LANTUS DOSE. GLUCOSE HAS FLUCTUATED FROM STEROIDS. Qualifiers: Diabetes mellitus type: type 2 (3) Chronic depression Current Visit: Yes Status: Chronic Plan: RESUME DULOXETINE DAILY. (4) HTN (hypertension) Current Visit: Yes Status: Acute Plan: ADD LOSARTAN Qualifiers: Hypertension type: primary hypertension Qualified Code(s): I10 - Essential (primary) hypertension
[2020-12-06] MEDS ORDERED: INSULIN -REGULAR HUMAN 50 UNIT/0.5 ML ML SQ SCH (19:30)
[2020-12-06] MEDS: ATORVASTATIN 20 MG TAB PO SCH (20:30)
[2020-12-06] MEDS ORDERED: INSULIN GLARGINE 100 UNITS/ML SQ SCH (21:00)
[2020-12-07] MEDS: METHYLPREDNISOLONE 40 MG INJ IV SCH (02:12)
[2020-12-07 03:53] LABS: Absolute Lymphocytes (CBC) 0.7 K/uL (0.7-4.9); Basophils % 0.4 % (0-1.3); Hematocrit 39.8 % (39.6-49.0); Lymphocytes % 5.4 % (15.3-44.8); MPV 7.6 fL (7.6-11.3); RBC Red Blood Cell Count 4.45 M/uL (4.33-5.43)
[2020-12-07 04:21] LABS: BUN Blood Urea Nitrogen 24 mg/dL (7-18); Bicarbonate 28 mmol/L (21-32); C-Reactive Protein 4.57 mg/L (<3.00); Glucose Level 52 mg/dL (74-106); Potassium 4.1 mmol/L (3.5-5.1); Sodium Level 138 mmol/L (136-145)
[2020-12-07] MEDS: ASPIRIN 325 MG TAB PO SCH (09:00)
[2020-12-07] MEDS: AMLODIPINE 5 MG TAB PO SCH (10:45)
[2020-12-07] MEDS: VITAMIN D 5,000 UNIT CAP PO SCH (10:45)
[2020-12-07] MEDS: DULOXETINE 30 MG CAP PO SCH (10:45)
[2020-12-07] MEDS: ARIPiprazole 5 MG TAB PO SCH (10:45)
[2020-12-07] MEDS: BARICITINIB 2 MG TABLET PO SCH (10:45)
[2020-12-07] MEDS: INSULIN -REGULAR HUMAN 50 UNIT/0.5 ML ML SQ SCH ×4 (10:50→21:24)
[2020-12-07] MEDS: NACHLORIDE 0.45% 1,000 ML IV SCH (12:53)
[2020-12-07] MEDS: ENOXAPARIN 40 MG/0.4 ML SQ SCH (15:59)
--- NOTE | 2020-12-07 17:52 | P.PN ---
Subjective Date of Service: 12/07/20 Chief Complaint: COVID penumonia Subjective: Improving HE IS FEELING BETTER. DENIES ANY NEW COMPLAINTS. HIS OXYGEN NEED HAS GONE DOWN SLOWLY. HIS O2 SAT GOT WORSE LAST NIGHT. HE LOOKS AND FEELS GOOD OTHERWISE. LOOKS BETTER. NOT WALKING MUCH HE LAYS ALL DAY. HE HAS SAD AFFECT AND I HAVE ADDED ABILIFY TO HELP HE IS LOT MORE STRONGER. ABLE TO WALK BUT DOES NOT WANT TO. Review of Systems 10-point ROS is otherwise unremarkable General: Weakness, Malaise Respiratory: Shortness of Breath Physical Examination - Vital Signs Temperature: 97.6 F Blood Pressure: 104/54 Pulse: 76 Respirations: 20 Pulse Ox (%): 94 - Physical Exam General: Oriented x3, Mild distress HEENT: Atraumatic, PERRLA, EOMI Neck: Supple, JVD not distended Respiratory: Clear to auscultation bilaterally, Normal air movement Cardiovascular: Regular rate/rhythm, Normal S1 S2 Gastrointestinal: Normal bowel sounds, No tenderness Musculoskeletal: No tenderness Integumentary: No rashes Neurological: Normal speech, Normal tone, Normal affect Lymphatics: No axilla or inguinal lymphadenopathy - Studies Medications List Reviewed: Yes Assessment And Plan - Current Problems (Diagnosis) (1) Pneumonia due to COVID-19 virus Current Visit: Yes Status: Acute Plan: IV SOLUMEDROL WATCH GLUCOSE. BARICITINIB DAILY PROGNOSIS GUARDED. CRP DAILY. PULSE OX IS 98% ON 10 LT WILL BE ABLE TO REDUCE IT. CONT MEDS. CONT MEDS. IMPROVED DOWN TO 4 LT NC. CXR IS WORSE. MAY LAG IMPROVEMENT. CONTINUE CURRENT RX. HE IS GETTING ALL HE NEEDS. CONT MEDS. GRADUAL IMPROVEMENT. (2) Diabetes Current Visit: Yes Status: Chronic Plan: SLIDING SCALE LANTUS DAILY SC WILL RAISE DOSE NEED. RAISE LANTUS DOSE. GLUCOSE HAS FLUCTUATED FROM STEROIDS. HYPOGLYCEMIA IN AM REDUCE DOSE TO CUT DOWN EVENTS. HE IS NOT EATING WELL AND HE DOES NOT GET MUCH CARBS HERE AT HOME. Qualifiers: Diabetes mellitus type: type 2 (3) Chronic depression Current Visit: Yes Status: Chronic Plan: RESUME DULOXETINE DAILY. (4) HTN (hypertension) Current Visit: Yes Status: Acute Plan: ADD LOSARTAN Qualifiers: Hypertension type: primary hypertension Qualified Code(s): I10 - Essential (primary) hypertension
[2020-12-07] MEDS: GLUCERNA SHAKE 237 ML CAN PO SCH (21:00)
[2020-12-07] MEDS ORDERED: INSULIN GLARGINE 100 UNITS/ML SQ SCH (21:00)
[2020-12-07] MEDS: ATORVASTATIN 20 MG TAB PO SCH (21:23)
[2020-12-08] MEDS: METHYLPREDNISOLONE 40 MG INJ IV SCH (00:31)
[2020-12-08 04:27] LABS: C-Reactive Protein 10.1 mg/L (<3.00); Potassium 5.3 mmol/L (3.5-5.1)
[2020-12-08 04:44] LABS: Absolute Lymphocytes (CBC) 0.4 K/uL (0.7-4.9); Basophils % 0.1 % (0-1.3); Hematocrit 37.8 % (39.6-49.0); Lymphocytes % 3.9 % (15.3-44.8); MPV 7.9 fL (7.6-11.3)
[2020-12-08] MEDS: INSULIN -REGULAR HUMAN 50 UNIT/0.5 ML ML SQ SCH ×4 (07:30→21:00)
[2020-12-08] MEDS: ASPIRIN 325 MG TAB PO SCH (09:00)
[2020-12-08] MEDS: GLUCERNA SHAKE 237 ML CAN PO SCH ×2 (09:00→21:00)
[2020-12-08] MEDS: INSULIN GLARGINE 100 UNITS/ML SQ SCH ×2 (10:11→22:21)
[2020-12-08] MEDS: DULOXETINE 30 MG CAP PO SCH (10:12)
[2020-12-08] MEDS: AMLODIPINE 5 MG TAB PO SCH (10:12)
[2020-12-08] MEDS: ARIPiprazole 5 MG TAB PO SCH (10:12)
[2020-12-08] MEDS: BUPROPION HCL XL 150 MG TAB PO SCH (10:12)
[2020-12-08] MEDS: BARICITINIB 2 MG TABLET PO SCH (10:12)
[2020-12-08] MEDS: VITAMIN D 5,000 UNIT CAP PO SCH (10:13)
--- NOTE | 2020-12-08 13:19 | P.PN ---
Subjective Date of Service: 12/08/20 Chief Complaint: COVID penumonia Subjective: Improving HE IS FEELING BETTER. DENIES ANY NEW COMPLAINTS. HIS OXYGEN NEED HAS GONE DOWN SLOWLY. HIS O2 SAT GOT WORSE LAST NIGHT. HE LOOKS AND FEELS GOOD OTHERWISE. LOOKS BETTER. NOT WALKING MUCH HE LAYS ALL DAY. HE HAS SAD AFFECT AND I HAVE ADDED ABILIFY TO HELP HE IS LOT MORE STRONGER. ABLE TO WALK BUT DOES NOT WANT TO. LOW GLUCOSE IN AM. Physical Examination - Vital Signs Temperature: 97.5 F Blood Pressure: 128/63 Pulse: 74 Respirations: 20 Pulse Ox (%): 96 - Physical Exam General: Mild distress, Moderate distress HEENT: Atraumatic, PERRLA, EOMI Neck: Supple, JVD not distended Respiratory: Clear to auscultation bilaterally, Normal air movement Cardiovascular: Regular rate/rhythm, Normal S1 S2 Gastrointestinal: Normal bowel sounds, No tenderness Musculoskeletal: No tenderness Integumentary: No rashes Neurological: Normal speech, Normal tone, Normal affect Lymphatics: No axilla or inguinal lymphadenopathy - Studies Medications List Reviewed: Yes Assessment And Plan - Current Problems (Diagnosis) (1) Pneumonia due to COVID-19 virus Current Visit: Yes Status: Acute Plan: IV SOLUMEDROL WATCH GLUCOSE. BARICITINIB DAILY PROGNOSIS GUARDED. CRP DAILY. PULSE OX IS 98% ON 10 LT WILL BE ABLE TO REDUCE IT. CONT MEDS. CONT MEDS. IMPROVED DOWN TO 4 LT NC. CXR IS WORSE. MAY LAG IMPROVEMENT. CONTINUE CURRENT RX. HE IS GETTING ALL HE NEEDS. CONT MEDS. GRADUAL IMPROVEMENT. CONT MEDS. MAY GO HOME IN AM IF STABLE. (2) Diabetes Current Visit: Yes Status: Chronic Plan: SLIDING SCALE LANTUS DAILY SC WILL RAISE DOSE NEED. RAISE LANTUS DOSE. GLUCOSE HAS FLUCTUATED FROM STEROIDS. HYPOGLYCEMIA IN AM REDUCE DOSE TO CUT DOWN EVENTS. HE IS NOT EATING WELL AND HE DOES NOT GET MUCH CARBS HERE AT HOME. Qualifiers: Diabetes mellitus type: type 2 (3) Chronic depression Current Visit: Yes Status: Chronic Plan: RESUME DULOXETINE DAILY. (4) HTN (hypertension) Current Visit: Yes Status: Acute Plan: ADD LOSARTAN Qualifiers: Hypertension type: primary hypertension Qualified Code(s): I10 - Essential (primary) hypertension
[2020-12-08] MEDS: ENOXAPARIN 40 MG/0.4 ML SQ SCH (17:15)
[2020-12-08] MEDS: NACHLORIDE 0.45% 1,000 ML IV SCH ×2 (20:00)
[2020-12-08] MEDS: ATORVASTATIN 20 MG TAB PO SCH (22:21)
[2020-12-09] MEDS: INSULIN -REGULAR HUMAN 50 UNIT/0.5 ML ML SQ SCH ×3 (07:30→16:30)
[2020-12-09] MEDS: INSULIN GLARGINE 100 UNITS/ML SQ SCH (08:00)
[2020-12-09] MEDS: GLUCERNA SHAKE 237 ML CAN PO SCH (09:00)
[2020-12-09] MEDS: ARIPiprazole 5 MG TAB PO SCH (09:00)
[2020-12-09] MEDS: BARICITINIB 2 MG TABLET PO SCH (09:14)
[2020-12-09] MEDS: ASPIRIN 325 MG TAB PO SCH (09:15)
[2020-12-09] MEDS: AMLODIPINE 5 MG TAB PO SCH (09:16)
[2020-12-09] MEDS: VITAMIN D 5,000 UNIT CAP PO SCH (09:16)
[2020-12-09] MEDS: DULOXETINE 30 MG CAP PO SCH (09:16)
[2020-12-09] MEDS: NACHLORIDE 0.45% 1,000 ML IV SCH (09:17)
[2020-12-09 10:33] VITALS: O2SAT 90
[2020-12-09] MEDS: BUPROPION HCL XL 150 MG TAB PO SCH (13:37)
[2020-12-09] MEDS: ENOXAPARIN 40 MG/0.4 ML SQ SCH (17:00)
[2020-12-09 17:21] VITALS: BP 108/55; TEMP 97.6
--- NOTE | 2020-12-15 21:45 | P.DS ---
Admission Date: 12/01/20 Discharge Date: 12/15/20 Disposition: ROUTINE DISCHARGE Discharge Condition: FAIR Reason for Admission: COVID penumonia - Problems (1) Pneumonia due to COVID-19 virus Status: Acute (2) Diabetes Status: Chronic Qualifiers: Diabetes mellitus type: type 2 (3) Chronic depression Status: Chronic (4) HTN (hypertension) Status: Acute Qualifiers: Hypertension type: primary hypertension Qualified Code(s): I10 - Essential (primary) hypertension Brief History of Present Illness: SANNA IS A DIABETIC WHO HAS BEEN POSITIVE FOR COVID 19 VIRUS INFECTION BY HOME TEST. HE COULD NOT DO INFUSION FOR MAB HE HAD TO WAIT FOR PCR TEST. BEFORE HE COULD DO THAT HE GOT WORSE AND REPORTED TO ER. THIS IS DAY 9 OF HIS INFECTION. HE IS STABLE , WEAK AND DYSPNEIC. SANNA WAS POS FOR COVID AFTER VACCINATION. HEDID WELL WITH STEROIDS, BARICITMIB AND WAS ABLE TO COME DOWN ON OXYGEN TO 4 LT NC BEFORE DISCHARGE. IT TOOK 10 DAYS TO GET DOWN TO THAT LEVEL. HE IS STABLE AT PR. Vital Signs/Physical Exam: Temp Pulse Resp BP Pulse Ox 97.6 F 77 20 108/55 L 99 12/09/20 16:00 12/09/20 16:00 12/09/20 16:00 12/09/20 16:00 12/09/20 16:00 Laboratory Data at Discharge: WBC 10.40 K/uL (4.3-10.9) D 12/08/20 03:17 Hgb 12.8 g/dL (13.6-17.9) L 12/08/20 03:17 Hct 37.8 % (39.6-49.0) L 12/08/20 03:17 Plt Count 534 K/uL (152-406) H 12/08/20 03:17 PT 14.1 SECONDS (9.5-12.5) H 11/30/20 22:06 INR 1.22 11/30/20 22:06 APTT 28.3 SECONDS (24.3-36.9) 11/30/20 22:06 Sodium 139 mmol/L (136-145) 12/08/20 03:17 Potassium 5.3 mmol/L (3.5-5.1) H 12/08/20 03:17 BUN 22 mg/dL (7-18) H 12/08/20 03:17 Creatinine 0.89 mg/dL (0.55-1.3) 12/08/20 03:17 Glucose 59 mg/dL (74-106) L 12/08/20 03:17 Total Bilirubin 0.7 mg/dL (0.2-1.0) 11/30/20 22:06 AST 46 U/L (15-37) H 11/30/20 22:06 ALT 37 U/L (12-78) 11/30/20 22:06 Alkaline Phosphatase 76 U/L (45-117) 11/30/20 22:06 Home Medications: Duloxetine HCl 60 mg PO DAILY 12/03/20 Insulin Glargine,Hum.rec.anlog [Emilio Jean] 65 unit SQ 12/03/20 Amlodipine [Norvasc*] 5 mg PO DAILY #90 tab 12/09/20 Aspirin Tab [Tomi Aspirin*] 325 mg PO DAILY tab 12/09/20 Bupropion *Xl* [Wellbutrin XL*] 150 mg PO DAILY #90 tab 12/09/20 Dexamethasone [Decadron] 6 mg PO DAILY #90 tablet 12/09/20 New Medications: Dexamethasone [Decadron] 6 mg PO DAILY #90 tablet Amlodipine [Norvasc*] 5 mg PO DAILY #90 tab Bupropion *Xl* [Wellbutrin XL*] 150 mg PO DAILY #90 tab Followup: Anil Shipley MD [ACTIVE - CAN ADMIT] - Unknown,U [Primary Care Provider] -
== END 2020-12-09 18:58 | disposition home or self-care (01) | DRG 177 ==
LOC: ER 20:37 → ERHOLD 12-01 00:19 → 4TH 12-01 02:21
PROVIDERS: ADMIT Internal Medicine; ATTEND Internal Medicine
DX: U07.1 COVID-19 (principal); J12.82 Pneumonia due to coronavirus disease 2019; E11.649 Type 2 diabetes mellitus with hypoglycemia without coma; F32.9 Major depressive disorder, single episode, unspecified; I10 Essential (primary) hypertension
CPT/HCPCS: 36415; 71045; 71275; 80048; 80076; 82306; 82728; 82947; 83605; 84145; 84484; 85025; 85379; 85610; 85730; 86140; 87040; 93005; 96361; 96374; 99285; J1650; J1815; J1940; J2920; J2930; J7030; Q9967; U0003